=== PATIENT | male | born 1960 | race Caucasian/White ===

== ENCOUNTER 2017-12-06 05:45 | Day surgery (SDC) | payer BC ==
[2017-12-06] MEDS ORDERED: Versed 2 MG/2 ML Injection IV ONE (05:46)
[2017-12-06] MEDS ORDERED: DIPRIVAN 200 MG/20 ML IV ONE (05:46)
[2017-12-06] MEDS ORDERED: Lactated Ringers 1,000 ML IV ONE (06:09)
[2017-12-06] MEDS ORDERED: Lactated Ringers 1,000 ML IV SCH (07:00)
[2017-12-06 08:31] VITALS: PULSE 69
[2017-12-06 08:41] VITALS: BP 141/87; O2SAT 96
--- NOTE | 2017-12-06 11:23 | OP ---
SURGERY DATE/TIME: 12/06/2017 0725 PREOPERATIVE DIAGNOSIS: Screening exam. POSTOPERATIVE DIAGNOSIS: Normal colon. PROCEDURE: Colonoscopy. SURGEON: Dr. Perera. ANESTHESIA: MAC. Medications given by anesthesia department. HISTORY: The patient is a 57 year-old white male patient presenting now for his first screening colonoscopy. He was appraised of the risks of the procedure including the risk of perforation, phlebitis, untoward reaction to medication, bleeding and missed lesions. The patient verbalized his understanding and desired to have the procedure performed. DESCRIPTION OF PROCEDURE: The patient was given the medications by the anesthesia department. He had continuous pulse oximetry, ECG monitoring, intermittent blood pressure monitoring and tidal CO2 monitoring during the examination. He was placed in the left lateral decubitus position. A digital rectal examination was performed and revealed normal anal sphincter tone and no masses. The flexible Olympus pediatric colonoscope was used to intubate the rectum. A view of the colon was developed sequentially to the cecum. Upon insertion and withdrawal, including a retroflex view in the rectum, no mucosal lesions were encountered. The scope was removed from the patient who tolerated the procedure well and was sent back to OP recovery in good condition. The prep was noted to be fair.
== END 2017-12-06 08:50 | disposition home or self-care (01) ==
LOC: SDC 05:45
PROVIDERS: ATTEND Family Medicine
PROC: 0DJD8ZZ Inspection of Lower Intestinal Tract, Via Natural or Artificial Opening Endoscopic (ICD-10-PCS; principal; 2017-12-06)
DX: Z12.11 Encounter for screening for malignant neoplasm of colon (principal)
CPT/HCPCS: 00812; J2250; J2704

== ENCOUNTER 2018-02-09 21:30 | Observation (INO) | payer BC ==
[2018-02-09] MEDS ORDERED: BABY ASPIRIN 81 MG CHEW PO ONE (21:44)
[2018-02-09] MEDS ORDERED: Sodium Chloride 0.9% 1000 ML 1,000 ML IV SCH (21:45)
--- NOTE | 2018-02-09 21:50 | ERPHSYRPT ---
- History of Present Illness Time Seen by Provider: 02/09/18 21:39 Historian: patient Exam Limitations: no limitations Patient Subjective Stated Complaint: pain in middle of sternum that does not radiate, pain so bad it caused vomiting Triage Nursing Assessment: Pt A&O x3, doesn't appear to be in distress, stated that he went home for lunch and didn't feel well, went back to work and returned home around 1500 feeling a lot worse, was laying down resting and jumped up in pain and had projectile vomiting, major diarhea, lower extremety pulses strong, heart sounds racing, lungs clear, bowel sounds heard in all 4 quadrants Physician History: Is a 57-year-old white male with history of diabetes on metformin. Patient arrives with complaint of a pain in the anterior sternal area and feels like there is a ball in the area area underlying sternum. He states that he has been having this pain since approximately 2:00 he states that he has been having vomiting which was a large amount prior to arrival felt like it was projectile. He is not short of breath is no fevers. Past medical history includes diabetes. Past surgical history negative. Social history negative tobacco negative alcohol negative illicit drugs. . Timing/Duration: today (2:00 this afternoon) Activities at Onset: none Quality: pressure Location: substernal Chest Pain Radiation: no radiation Severity of Pain-Max: moderate Severity of Pain-Current: mild Modifying Factors: Improves With: other (patient felt like he was having a having a hard time swallowing, then had a episode of projectile vomiting) Associated Symptoms: nausea, vomiting, No palpitations, No heartburn, No abdominal pain, No shortness of breath, No cough, No hurts to breathe, No diaphoresis, No chills, No fever, No fatigue, No weakness, No syncope, No rash, No headache, No dizziness Prior Chest Pain/Cardiac Workup: no prior chest pain Aspirin Treatment Today: 81 mg x 4, provided by ED Allergies/Adverse Reactions: No Known Drug Allergies Allergy (Verified 12/06/17 06:09) Home Medications: No Reportable Medications [No Reported Medications] 11/26/17 [History] - Review of Systems Constitutional: No Fever, No Chills Eyes: No Symptoms Ears, Nose, & Throat: No Symptoms Respiratory: No Cough, No Dyspnea Cardiac: Chest Pain Abdominal/Gastrointestinal: Vomiting, No Abdominal Pain, No Nausea, No Diarrhea , No Constipation, No Hematemesis, No Hematochezia, No Melena, No Dysphagia, No Appetite Changes Genitourinary Symptoms: No Dysuria Musculoskeletal: No Back Pain, No Neck Pain Skin: No Rash Neurological: No Dizziness, No Focal Weakness, No Sensory Changes Psychological: No Symptoms Endocrine: No Symptoms All Other Systems: Reviewed and Negative - Past Medical History Pertinent Past Medical History: No Neurological History: No Pertinent History ENT History: No Pertinent History Cardiac History: No Pertinent History Respiratory History: No Pertinent History Endocrine Medical History: No Pertinent History Musculoskeletal History: No Pertinent History GI Medical History: No Pertinent History History: No Pertinent History Psycho-Social History: No Pertinent History Male Reproductive Disorders: No Pertinent History - Past Surgical History Past Surgical History: Yes Neuro Surgical History: No Pertinent History Cardiac: No Pertinent History Respiratory: No Pertinent History Gastrointestinal: No Pertinent History Genitourinary: No Pertinent History Musculoskeletal: No Pertinent History Male Surgical History: No Pertinent History Other Surgical History: pilonidal cyst removed. - Social History Smoking Status: Former smoker Exposure to second hand smoke: No Drug Use: none Patient Lives Alone: No - Nursing Vital Signs Nursing Vital Signs: Initial Vital Signs Pulse Rate 113 H //18 21:32 Pain Scale Pain Intensity 4 - Physical Exam General Appearance: mild distress Eye Exam: PERRL/EOMI, eyes nml inspection Ears, Nose, Throat Exam: normal ENT inspection, moist mucous membranes Neck Exam: normal inspection, non-tender, supple, full range of motion Respiratory Exam: normal breath sounds, lungs clear, No respiratory distress Cardiovascular Exam: regular rate/rhythm, normal heart sounds Gastrointestinal/Abdomen Exam: soft, No tenderness, No mass Back Exam: normal inspection, No CVA tenderness, No vertebral tenderness Extremity Exam: normal inspection, normal range of motion Neurologic Exam: alert, oriented x 3, cooperative, 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, normal mood/affect, sensation nml, No motor deficits Skin Exam: normal color, warm, dry SpO2 Interpretation: normal (100%) SpO2: 100 Oxygen Delivery: Room Air - Course Nursing assessment & vital signs reviewed: Yes EKG Interpreted by Me: RATE (115 bpm), NORMAL AXIS, Other (EKG: Sinus tachycardia, 1 15 bpm, normal axis, no acute ST oe T wave changes noted) - Radiology Exams Chest X-ray Interpretation: Interpreted by me, Other (no acute disease process noted) Ordered Tests: Active Orders 24 hr Category Date Time Status Entry Level Mechanical Engineer STAT Care 02/09/18 21:44 Active EKG-ER Only STAT Care 02/09/18 21:44 Active IV Insertion STAT Care 02/09/18 21:44 Active Pulse Oximetry (ED) STAT Care 02/09/18 21:44 Active CHEST 1 VIEW (PORTABLE) Stat Exams 02/09/18 21:44 Taken AMYLASE Stat Lab 02/09/18 21:42 Completed CBC W DIFF Stat Lab 02/09/18 21:42 Completed CMP Stat Lab 02/09/18 21:42 Completed D-DIMER QUANTITATION Stat Lab 02/09/18 21:42 Completed LIPASE Stat Lab 02/09/18 21:42 Completed Manual Differential NC Stat Lab 02/09/18 21:42 Completed PROTIME WITH INR Stat Lab 02/09/18 21:42 Completed PTT Stat Lab 02/09/18 21:42 Completed TROPONIN Q3H Lab 02/09/18 21:42 Completed TROPONIN Q3H Lab 02/10/18 00:45 Ordered TROPONIN Q3H Lab 02/10/18 03:45 Ordered TROPONIN Q3H Lab 02/10/18 06:45 Ordered TROPONIN Q3H Lab 02/10/18 09:45 Ordered Medication Summary Generic Name Dose Route Start Last Admin Trade Name Freq PRN Reason Stop Dose Admin Sodium Chloride 1,000 mls @ 100 mls/hr 02/09/18 21:45 02/09/18 22:11 Sodium Chloride 0.9% 1000 Ml IV 03/11/18 21:44 100 mls/hr .Q10H PAUL Administration Discontinued Medications Generic Name Dose Route Start Last Admin Trade Name Freq PRN Reason Stop Dose Admin Aspirin 324 mg 02/09/18 21:44 02/09/18 22:10 Baby Aspirin 81 Mg Chew PO 02/09/18 21:45 324 mg STAT ONE Administration Aspirin Confirm 02/09/18 22:09 Baby Aspirin 81 Mg Chew Administered 02/09/18 22:10 Dose 324 mg .ROUTE .STK-MED ONE Lab/Rad Data: Laboratory Result Diagrams 02/09/18 21:42 02/09/18 21:42 Laboratory Results 02/09/18 02/09/18 02/09/18 Range/Units 21:42 21:42 21:42 WBC (4.0-10.5) K/mm3 RBC (4.1-5.6) M/mm3 Hgb (12.5-18.0) gm/dl Hct (42-50) % MCV (78-100) fl MCH (26-32) pg MCHC (32-36) g/dl RDW (11.5-14.0) % Plt Count (150-450) K/mm3 MPV (6-9.5) fl INR 1.04 (0.8-3.0) APTT 28.9 (24.1-36.1) SECONDS D-Dimer 276.15 (215-500) ng/mL Sodium (137-145) mmol/L Potassium (3.5-5.1) mmol/L Chloride (98-107) mmol/L Carbon Dioxide (22-30) mmol/L Anion Gap (5-15) MEQ/L BUN (9-20) mg/dL Creatinine (0.66-1.25) mg/dL Estimated GFR ML/MIN Glucose (74-106) mg/dL Calcium (8.4-10.2) mg/dL Total Bilirubin (0.2-1.3) mg/dL AST (17-59) U/L ALT (0-50) U/L Alkaline Phosphatase (38-126) U/L Troponin I < 0.012 (0.000-0.034) ng/mL Serum Total Protein (6.3-8.2) g/dL Albumin (3.5-5.0) g/dL Amylase 62 (30-110) U/L Lipase 177 (23-300) U/L 18 02/09/18 Range/Units 21:42 21:42 WBC 9.3 (4.0-10.5) K/mm3 RBC 5.28 (4.1-5.6) M/mm3 Hgb 15.6 (12.5-18.0) gm/dl Hct 44.4 (42-50) % MCV 84.1 (78-100) fl MCH 29.5 (26-32) pg MCHC 35.1 (32-36) g/dl RDW 12.6 (11.5-14.0) % Plt Count 168 (150-450) K/mm3 MPV 10.6 H (6-9.5) fl INR (0.8-3.0) APTT (24.1-36.1) SECONDS D-Dimer (215-500) ng/mL Sodium 137 (137-145) mmol/L Potassium 4.2 (3.5-5.1) mmol/L Chloride 98 (98-107) mmol/L Carbon Dioxide 26 (22-30) mmol/L Anion Gap 17.3 H (5-15) MEQ/L BUN 19 (9-20) mg/dL Creatinine 0.89 (0.66-1.25) mg/dL Estimated GFR > 60 ML/MIN Glucose 290 H (74-106) mg/dL Calcium 9.4 (8.4-10.2) mg/dL Total Bilirubin 0.70 (0.2-1.3) mg/dL AST 24 (17-59) U/L ALT 34 (0-50) U/L Alkaline Phosphatase 87 (38-126) U/L Troponin I (0.000-0.034) ng/mL Serum Total Protein 7.4 (6.3-8.2) g/dL Albumin 4.6 (3.5-5.0) g/dL Amylase (30-110) U/L Lipase (23-300) U/L - Progress Progress: improved Air Movement: fair Progress Note: 02/09/18 23:00 This is a 57-year-old white male who complaints that he feels like there is a ball-like sensation in his substernal area since 2:00 this afternoon he's had vomiting. Patient with mild elevation of glucose of 290 EKG a sinus tachycardia 1 15 bpm normal axis no acute ST or T wave changes patient's chest x-ray unremarkable. Patient has been given aspirin 324 mg he was sleeping when I checked into the room when he is welcome asked if he had any discomfort he stated maybe a little \I've discussed the case with Dr Aparicio who is flotation tender helper for Dr. Perera will place patient on observation telemetry obtain serial troponins provide IV fluids , 4 times a day Accu-Cheks with sliding scale insulin coverage, - Departure Time of Disposition: 23:02 Departure Disposition: Observation Clinical Impression: Chest pain Qualifiers: Chest pain type: unspecified Qualified Code(s): R07.9 - Chest pain, unspecified Vomiting Qualifiers: Vomiting type: unspecified Condition: Fair Critical Care Time: No Referrals: SNEHA PERERA [Primary Care Provider] -
[2018-02-09 21:56] LABS: Granulocyte Absolute (ANC) 8.44 (1.4-6.9); Hematocrit 44.4 % (42-50); Hemoglobin 15.6 gm/dl (12.5-18.0); Mean Cell Volume 84.1 fl (78-100); Mean Corpuscular Hemoglobin 29.5 pg (26-32); Mean Corpuscular Hgb Concent. 35.1 g/dl (32-36); Mean Platelet Volume 10.6 fl (6-9.5); Platelet Count 168 K/mm3 (150-450); Red Blood Count 5.28 M/mm3 (4.1-5.6); Red Cell Distribution Width 12.6 % (11.5-14.0); White Blood Count 9.3 K/mm3 (4.0-10.5)
[2018-02-09] MEDS ORDERED: Sodium Chloride 0.9% 1000 ML 1,000 ML ONE (22:09)
[2018-02-09] MEDS ORDERED: BABY ASPIRIN 81 MG CHEW ONE (22:09)
[2018-02-09 22:14] LABS: ALBUMIN 4.6 g/dL (3.5-5.0); ALKALINE PHOSPHATASE 87 U/L (38-126); ANION GAP 17.3 MEQ/L (5-15); BLOOD UREA NITROGEN 19 mg/dL (9-20); CHLORIDE 98 mmol/L (98-107); Calcium 9.4 mg/dL (8.4-10.2); Carbon Dioxide 26 mmol/L (22-30); Creatinine 1 0.89 mg/dL (0.66-1.25); Glucose 290 mg/dL (74-106); Potassium 4.2 mmol/L (3.5-5.1); SGOT/AST 24 U/L (17-59); SGPT/ALT 34 U/L (0-50); SODIUM 137 mmol/L (137-145); Total Protein 7.4 g/dL (6.3-8.2)
[2018-02-09 22:27] LABS: INR 1.04 (0.8-3.0)
[2018-02-09 22:28] LABS: D-DIMER QUANTITATION 276.15 ng/mL (215-500)
[2018-02-09 22:29] LABS: PTT 28.9 SECONDS (24.1-36.1)
[2018-02-09 22:33] LABS: AMYLASE 62 U/L (30-110); LIPASE 177 U/L (23-300)
[2018-02-09] MEDS ORDERED: NovoLOG Insulin SQ PRN (23:50)
[2018-02-09] MEDS ORDERED: Zofran 4 MG/2 ML VIAL IV PRN (23:50)
[2018-02-09 23:57] LABS: Eosinophil 2 % (0.00-3.0); Lymphocytes 11 % (24-44); Monocyte 3 % (0.0-12.0); Neutrophils 84 % (36.-66.); Total Cells Counted 100
[2018-02-09 23:59] LABS: Platelet Estimate DECREASED (NORMAL)
[2018-02-10] MEDS: Sodium Chloride 0.9% 1000 ML 1,000 ML IV SCH ×2 (00:59→06:26)
[2018-02-10 04:33] LABS: BASOPHIL % 0.1 % (0.0-0.4); Basophil (Absolute #) 0.01 (0-0.4); Eosinophil % 0.9 % (0.00-5.0); Eosinophil (Absolute #) 0.07 (0-0.5); Granulocytes % 85.6 % (36.0-66.0); Hematocrit 41.7 % (42-50); Hemoglobin 14.6 gm/dl (12.5-18.0); Lymphocyte (Absolute #) 0.65 (1.0-4.6); Lymphocytes % 8.3 % (24.0-44.0); Mean Cell Volume 84.8 fl (78-100); Mean Corpuscular Hemoglobin 29.7 pg (26-32); Mean Platelet Volume 10.5 fl (6-9.5); Monocytes % 5.1 % (0.0-12.0); Platelet Count 147 K/mm3 (150-450); Red Blood Count 4.92 M/mm3 (4.1-5.6); Red Cell Distribution Width 12.7 % (11.5-14.0); White Blood Count 7.8 K/mm3 (4.0-10.5)
[2018-02-10 04:49] LABS: ALKALINE PHOSPHATASE 65 U/L (38-126); ANION GAP 15.3 MEQ/L (5-15); BLOOD UREA NITROGEN 17 mg/dL (9-20); CHLORIDE 100 mmol/L (98-107); Calcium 8.6 mg/dL (8.4-10.2); Carbon Dioxide 24 mmol/L (22-30); Creatinine 1 0.79 mg/dL (0.66-1.25); Glucose 251 mg/dL (74-106); Potassium 3.9 mmol/L (3.5-5.1); SGOT/AST 24 U/L (17-59); SGPT/ALT 32 U/L (0-50); SODIUM 136 mmol/L (137-145); Total Protein 6.5 g/dL (6.3-8.2)
[2018-02-10 07:20] VITALS: BP 150/67
[2018-02-10 07:28] VITALS: PULSE 87; O2SAT 93
--- NOTE | 2018-02-10 08:26 | PCM.DCORD ---
- Discharge Discharge Date: 02/10/18 Disposition: Home, Self-Care Condition: Good Prescriptions: Continue Metformin HCl 500 mg [Glucophage 500 MG] 500 mg PO BID Simvastatin 20Mg [Zocor 20Mg] 10 mg PO QHS Follow up with: SNEHA MELISSA [Primary Care Provider] - 1 Week
--- NOTE | 2018-02-10 08:38 | XRAY ---
Indication: Chest pain. Comparison: None Apical lordotic portable chest demonstrates normal heart and lungs with a few incidental calcified granulomas. Bony thorax intact with minimal degenerative changes.
[2018-02-10] MEDS ORDERED: Glucophage 500 MG PO SCH (09:00)
[2018-02-10] MEDS ORDERED: ECOTRIN 81 MG PO SCH (10:00)
[2018-02-10] MEDS ORDERED: Zocor 10MG PO SCH (22:00)
--- NOTE | 2018-02-15 10:11 | SSS ---
DISCHARGE DIAGNOSES: 1) CHEST PAIN. 2) VOMITING. 3) DIARRHEA. 4) DIABETES MELLITUS TYPE 2. HISTORY: The patient is a 57 year-old white male patient who was at work. He apparently was not feeling well. He had projectile vomiting episode and some chest discomfort that felt like a ball in the middle of his chest. He also had an episode of diffuse diarrhea. He presented to the emergency room and was admitted to the hospital for evaluation and management. PAST MEDICAL/SURGICAL HISTORY: Significant for recent diagnosis of diabetes mellitus type 2. He has been placed on Metformin and has been tolerating this well to this point. HOME MEDICATIONS: Metformin 500 mg b.i.d. ALLERGIES: NKDA. PHYSICAL EXAMINATION: Revealed a well nourished, well developed 57 year-old white male patient in no obvious distress. His current vital signs showed temperature 98.5F, pulse 92, respiratory rate 18, blood pressure 121/69. O2 saturation 93% on room air. HEENT: Normocephalic, atraumatic. Pupils equal round reactive to light. Extraocular movements intact. Oropharynx is pink and moist. NECK: Supple without lymphadenopathy, thyromegaly or JVD. CHEST: Clear to auscultation. HEART: Regular rate and rhythm without murmurs, rubs or gallops. ABDOMEN: Soft, nontender, nondistended without hepatosplenomegaly or masses. EXTREMITIES: Without clubbing, cyanosis or edema. NEUROLOGIC: The patient is alert and oriented x3. No focal deficits were noted. LAB DATA AND TESTS: White blood cell count 7,800, hemoglobin 14.6, PLT count slightly low at 147,000. His sugar fasting was 251. BUN 17, creatinine 0.79. Electrolytes were normal. Liver enzymes were normal. Troponins have all been less than 0.012. Amylase 62, lipase 177. He had EKG that showed sinus tachycardia but no obvious acute ST-T wave changes. He had chest x-ray which was essentially normal. HOSPITAL COURSE: The patient was monitored overnight. He reports that he slowly got better overnight. He was able to eat a normal breakfast this morning sitting up in bed responding well without any evidence of discomfort whatsoever. It was felt that the patient is ready for discharge home at this time with instructions to follow up in the office in one week, to continue his current medications.
== END 2018-02-10 10:45 | disposition home or self-care (01) ==
LOC: ED 21:30 → MED SURG 23:39
PROVIDERS: ADMIT Family Medicine; ATTEND Family Medicine
DX: R07.89 Other chest pain (principal); R11.10 Vomiting, unspecified; R19.7 Diarrhea, unspecified; E11.9 Type 2 diabetes mellitus without complications; Z72.0 Tobacco use
CPT/HCPCS: 36000; 36415; 71045; 80053; 82150; 82962; 83690; 84484; 85025; 85379; 85610; 85730; 93005; 93041; 93268; 94760; 96360; 96361; 99285; G0378; J2405; A9270-GY